=== PATIENT | male | born 1975 | race Caucasian/White ===

== ENCOUNTER 2017-11-22 20:22 | Emergency (ER) | payer OTHER ==
--- NOTE | 2017-11-22 20:46 | CPEKG ---
Heart Rate: 57 RR Interval: 1053 P-R Interval: 180 QRSD Interval: 94 QT Interval: 424 QTC Interval: 413 P [facility]: 5 QRS [facility]: 16 T Wave [facility]: 20 EKG Severity - NORMAL ECG - EKG Impression: SINUS RHYTHM Electronically Signed By: William Cota 22-Nov-2017 20:47:50
--- NOTE | 2017-11-22 20:48 | EDPHY ---
H & P Stated Complaint: SOB, L Arm Numbness, Dizzy, Confusion Time Seen by Provider: 11/22/17 20:39 HPI/ROS: CHIEF COMPLAINT: Transient confusion, paresthesias left hand, tingling right cheek, lightheadedness HISTORY OF PRESENT ILLNESS: The patient is a healthy 42-year-old male visiting from [place] who developed transient confusion, paresthesias in his 4th and 5th left fingers, transient tingling his right cheek in general lightheadedness. Patient reports that his symptoms have more less resolved aside from some residual paresthesias. The patient denies any drug or alcohol ingestion. The patient has no significant past medical history. He has been at altitude for the past 3 weeks exercising without any complaints of chest pain or shortness of breath. The patient has no history of migraine headaches. He denies any history of fall or trauma. He denies neck pain or chiropractic manipulation. He has no history of a connective tissue disorder. REVIEW OF SYSTEMS: A comprehensive 10 point review of systems is otherwise negative aside from elements mentioned in the history of present illness. Source: Patient - Personal History Current Tetanus Diphtheria and Acellular Pertussis (TDAP): Yes - Medical/Surgical History Hx Asthma: No Hx Chronic Respiratory Disease: No Hx Diabetes: No Hx Cardiac Disease: No Hx Renal Disease: No Hx Cirrhosis: No Hx Alcoholism: No Hx HIV/AIDS: No Hx Splenectomy or Spleen Trauma: No Other PMH: Orthopedic - Social History Smoking Status: Former smoker - Physical Exam Exam: General Appearance: Alert, no distress Eyes: Pupils equal and round no pallor or injection ENT, Mouth: Mucous membranes moist Respiratory: There are no retractions, lungs are clear to auscultation Cardiovascular: Regular rate and rhythm Gastrointestinal: Abdomen is soft and nontender, no masses, bowel sounds normal Neurological: Alert and oriented x4, 5/5 strength all 4 extremities, cranial nerves 2-12 intact, patient reports decreased sensation to light touch in his left 4th and 5th fingers, normal cerebellar function Skin: Warm and dry, no rashes Musculoskeletal: Neck is supple nontender, no carotid bruit Extremities: symmetrical, full range of motion Constitutional: Initial Vital Signs Temperature (C) 36.9 C 11/22/17 20:35 Heart Rate 74 11/22/17 20:35 Respiratory Rate 18 11/22/17 20:35 Blood Pressure 134/97 H 11/22/17 20:35 O2 Sat (%) 97 11/22/17 20:35 O2 Delivery Mode Room Air Allergies/Adverse Reactions: No Known Allergies Allergy (Unverified 11/22/17 20:34) Home Medications: Medication Instructions Recorded NK [No Known Home Meds] 11/22/17 Medical Decision Making - Diagnostics EKG Interpretation: EKG: Complete interpretation has been separately recorded in the [facility] archive. Summary impression: Sinus rhythm, rate 57 ED Course/Re-evaluation: The patient presents to the ED after a brief episode of confusion, some left arm paresthesias in the distribution of the ulnar nerve and some tingling in his right cheek. There is no associated headache, speech or gait problems. His symptoms were self-limited and resolved quickly. The patient has no risk factors for vascular disease. He has no history which would suggest the possibility of a carotid dissection. The patient received IV fluids in the emergency department. His neurologic examination remained completely unremarkable. The patient's EKG demonstrates no evidence of ischemia and his troponin was normal. I re-evaluated the patient several times throughout his stay in the emergency department. I discussed with him at his young age without risk factors I felt TIA was on likely. Especially given the distribution of his symptoms of the right cheek and left arm in a ulnar distribution. The patient does understand that I have limited ability to the to fully exclude the possibility of TIA. Given his lack of risk factors I do not feel that he requires hospitalization for risk stratification. The patient will be stain in [place] for the next 2 days and is completely comfortable returning to the emergency department for the development of any emerging or concerning neurologic symptoms, headache, chest pain or other concerns. Patient will follow up with his primary care provider in [place] next week. I believe the patient likely experienced a migrainous type event today. Differential Diagnosis: Differential diagnosis considered includes peripheral neuropathy, dehydration, migraine variant, ischemic stroke - Data Points Laboratory Results: Laboratory Results 11/22/17 20:50 11/22/17 20:50 11/22/17 11/22/17 11/22/17 20:53 20:50 20:50 WBC 9.01 10^3/uL 10^3/uL (3.80-9.50) RBC 5.55 10^6/uL 10^6/uL (4.40-6.38) Hgb 16.6 g/dL g/dL (13.7-17.5) Hct 45.5 % % (40.0-51.0) MCV 82.0 fL fL (81.5-99.8) MCH 29.9 pg pg (27.9-34.1) MCHC 36.5 g/dL g/dL (32.4-36.7) RDW 13.3 % % (11.5-15.2) Plt Count 226 10^3/uL 10^3/uL (150-400) MPV 11.0 fL fL (8.7-11.7) Neut % (Auto) 40.7 % % (39.3-74.2) Lymph % (Auto) 45.7 % H % (15.0-45.0) [place] % (Auto) 9.3 % % (4.5-13.0) Eos % (Auto) 3.1 % % (0.6-7.6) Baso % (Auto) 0.9 % % (0.3-1.7) Nucleat RBC Rel Count 0.0 % % (0.0-0.2) Absolute Neuts (auto) 3.66 10^3/uL 10^3/uL (1.70-6.50) Absolute Lymphs (auto) 4.12 10^3/uL H 10^3/uL (1.00-3.00) Absolute Monos (auto) 0.84 10^3/uL H 10^3/uL (0.30-0.80) Absolute Eos (auto) 0.28 10^3/uL 10^3/uL (0.03-0.40) Absolute Basos (auto) 0.08 10^3/uL 10^3/uL (0.02-0.10) Absolute Nucleated RBC 0.00 10^3/uL 10^3/uL (0-0.01) Immature Gran % 0.3 % % (0.0-1.1) Immature Gran # 0.03 10^3/uL 10^3/uL (0.00-0.10) Sodium 137 mEq/L mEq/L (135-145) Potassium 3.7 mEq/L mEq/L (3.3-5.0) Chloride 103 mEq/L mEq/L (97-110) Carbon Dioxide 28 mEq/l mEq/l (22-31) Anion Gap 6 mEq/L L mEq/L (8-16) BUN 16 mg/dL mg/dL (7-23) Creatinine 1.1 mg/dL mg/dL (0.7-1.3) Estimated GFR > 60 Glucose 87 mg/dL mg/dL (70-100) Calcium 9.6 mg/dL mg/dL (8.5-10.4) POC Troponin I 0.00 ng/mL ng/mL (0.00-0.08) Medications Given: Discontinued Medications Sodium Chloride (Ns) 1,000 mls @ 0 mls/hr IV EDNOW ONE; Wide Open PRN Reason: Protocol Stop: 11/22/17 20:57 Last Admin: 11/22/17 21:00 Dose: 1,000 mls Point of Care Test Results: Chemistry 11/22/17 20:53 POC Troponin I 0.00 ng/mL ng/mL (0.00-0.08) Departure - Departure Disposition: Home, Routine, Self-Care Clinical Impression: Paresthesia Condition: Good Instructions: Paresthesia (ED) Additional Instructions: 1. Based upon your current exam and history I find no worrisome features suggestive of a stroke or TIA. That being said, it is imperative that you return to the ED immediately for the development of any new neurologic symptoms especially numbness or weakness on one side of the body relative to the other, difficulty with speech, ambulation, severe headache, unexplained neck pain or other concerns. 2. I do believe your symptoms were likely secondary to a migraine variant. 3. Please follow up with your primary care provider in [place] as scheduled. Referrals: LUCIO MCGOWAN [Other] - As per Instructions
[2017-11-22] MEDS ORDERED: NS 1,000 ML IV ONE (20:56)
[2017-11-22 21:03] LABS: PLATELET COUNT 226 10^3/uL (150-400)
[2017-11-22 22:12] VITALS: BP 134/78
== END 2017-11-22 22:12 | disposition home or self-care (01) ==
DX: R20.2 Paresthesia of skin (principal); Z87.891 Personal history of nicotine dependence
CPT/HCPCS: 84484-PO